=== PATIENT | male | born 1995 | race Two or more races ===

== ENCOUNTER 2022-08-11 18:33 | Emergency (ER) | payer OTHER, MEDICAID, SELFPAY ==
[2022-08-11 18:44] VITALS: BP 121/64; PULSE 65; RESP 16; TEMP 36.2; O2SAT 98; BMI 29.9
--- NOTE | 2022-08-11 18:44 | ED_ITS ---
HPI - URI/Sore Throat General Chief Complaint: Upper Respiratory Symptoms Stated Complaint: chest pain with cough, sore throat Time Seen by Provider: 08/11/22 18:48 Source: patient Mode of arrival: ambulatory Limitations: no limitations History of Present Illness HPI Narrative: Margaret is a 27 year old male who presents emergency department for evaluation of upper respiratory symptoms; chest pain during episodes of coughing, sore throat, chills, body aches, since last night. Denies shortness of breath, fevers, nausea or vomiting. Reports grandchildren are ill at home with RSV currently. Related Data Allergies Allergy/AdvReac Type Severity Reaction Status Date / Time No Known Allergies Allergy Verified 08/11/22 18:47 Review of Systems Review of Systems: Constitutional: No fever. Positive chills. No weakness. Positive fatigue. ENT/ Mouth: No Ear Pain, positive Nasal Congestion, positive sore throat, No Rhinorrhea, No Swallowing Difficulty Skin: No rash or itching. Cardiovascular: Positive chest pain. No palpitations. Respiratory: No shortness of breath. Positive cough. No sputum production. Gastrointestinal: No nausea. No vomiting. No diarrhea. No abdominal pain. Genitourinary: No burning micturition. No urinary frequency. Neurologic: No headache. No dizziness. No syncope. No numbness or tingling in the extremities. Musculoskeletal: No muscle pain. No back pain. No joint pain or stiffness. Yes all other systems are reviewed and are negative [facility] Past Medical History Attestation statement: The following information was validated with the patient. Source: old records reviewed Social History Social History Advance Directives: No Advance Directives Information Provided: No Physical Exam Vital Signs: Vital Signs: Last Vital Signs Temp 97.1 F 08/11/22 18:44 Pulse 65 08/11/22 18:44 Resp 16 08/11/22 18:44 BP 121/64 08/11/22 18:44 Pulse Ox 98 08/11/22 18:44 O2 Del Method 08/11/22 18:44 BMI result Body Mass Index 29.9 Vital signs have been reviewed as normal and appeared to be correct. Blood pressure normal.? Heart rate normal.? Respiration rate normal. Temperature normal.? Oxygen saturation normal. Appearance: Alert.?Oriented to person, place and time. No acute distress.?Normal affect. Eyes: Pupils equal, round and reactive to light.? ENT: TM normal bilaterally. tonsillar erythema, no exudates, no hypertrophy, uvula midline, no trismus, no drooling. Neck: Normal inspection.? Neck supple.??No cervical adenopathy CVS: Heart sounds normal. Normal heart rate and rhythm.? Pulses normal.?? Respiratory: No respiratory distress.? Lung sounds clear to auscultation bilaterally?? Abdomen: Soft and non-tender. Normoactive bowel sounds. Skin: Skin warm and dry.? Normal skin color.? ? Extremities: No lower extremity edema.? Neuro: Moves all extremities spontaneously. Sensation intact bilaterally. No motor deficits. Ambulates with normal steady gait. Medical Decision Making Medical Decision Making [facility] [place] Narrative: Patient is a 27-year-old male with no reported past medical history, presenting for evaluation of upper respiratory symptoms. COVID-19 testing is positive, we discussed emergency use authorization Paxlovid, potential side effects, patient declines treatment at this time. Influenza testing negative. RSV testing negative. At this time history and physical exam not consistent with ACS/PE/pneumonia. Well-appearing, nontoxic, afebrile, no tachycardia or tachypnea/hypoxia. Speaking clear full sentences, ambulatory with steady gait. Discussed conservative treatment including rest, hydration, Tylenol/ibuprofen as needed for fever and body aches, saline nasal spray, humidifier, [id number] cold medication. Advised to follow-up with primary care provider as needed, discussed reasons to return back to the emergency department. All questions were answered. Patient discharged home in stable condition. Differential Diagnosis Differential Diagnoses: The differential diagnosis associated with the presentation includes (As noted above) Lab Data [facility] [place] Lab Attestation statement: I reviewed the patient's lab results. Labs: Lab Results 08/11/22 Range/Units 19:16 Influenza Type A (PCR) NEGATIVE (Negative) Influenza Type B (PCR) NEGATIVE (Negative) RSV RNA Qual (PCR) NEGATIVE (Negative) SARS-CoV-2 RNA (RT-PCR) POSITIVE A (Negative) Tests considered The following testing was considered but not selected: Consider chest x-ray, clinically not consistent with pneumonia, low suspicion, x-ray deferred. Prescription Management I considered prescription management with: Antiviral (declined) and Antibiotic (Considered antibiotics, however viral etiology at this time.) Discharge Plan Discharge Clinical Impression: COVID-19 Patient Disposition: Home, Self-Care Instructions: COVID-19 (Coronavirus Disease 2019) (ED) Additional Instructions: Your COVID-19 test today is positive. It is important to isolate for 5 days, your soonest end isolation date is 08/16/2022. Be sure to rest, stay well hydrated drinking plenty of fluids, eat small frequent meals. Tylenol/ibuprofen can be used as needed for fever/pain. [id number] cold medications may be helpful as well for symptoms. Saline nasal spray, humidifier may be helpful for nasal congestion. You may return to the emergency department with any new or worsening symptoms or concerns. Follow-up with your primary care provider as needed. Referrals: Physician,None [Primary Care Provider] - Stand Alone Forms: Work/School Release
[2022-08-11 20:12] LABS: Influenza A PCR NEGATIVE (Negative); Influenza B PCR NEGATIVE (Negative); Resp Syncy Virus RNA Qual PCR NEGATIVE (Negative); SARS COV2 PCR INHOUSE POSITIVE (Negative)
== END 2022-08-11 21:13 | disposition home or self-care (01) ==
PROVIDERS: Nurse Practitioner Family; Emergency Provider Emergency Medicine Emergency Medical Services
DX: U07.1 COVID-19 (principal); R07.89 Other chest pain; R05.9 Cough, unspecified; R06.02 Shortness of breath
CPT/HCPCS: 0241U; 99282; 99283